=== PATIENT | female | born 1965 | race African-American/Black ===

== ENCOUNTER 2016-12-03 19:11 | Emergency (ER) | payer MEDICARE, MEDICAID ==
[~2016-12-03] VITALS: Ht 162.6 cm; Wt 70.0 kg
[~2016-12-03 19:11] MED LIST: NEO/POLYMYX B SULF/DEXAMETH OPHTH OINT 3.5GM OP SCH
[2016-12-03] MEDS ORDERED: IBUPROFEN 600MG TABLET PO ONE (23:30)
[2016-12-04] MEDS ORDERED: NEOMYCIN/POLYMYXN B/GRAMICIDIN OPHTH DROPS 10ML BOTHEYE SCH
[2016-12-04 01:30] VITALS: BP 145/71
== END 2016-12-04 01:31 | disposition home or self-care (01) ==
LOC: ER 19:12
DX: B99.9 Unspecified infectious disease (principal); H10.89 Other conjunctivitis
CPT/HCPCS: 99283